=== PATIENT | male | born 1970 | race Two or more races ===

== ENCOUNTER 2020-03-13 14:30 | Emergency (ER) | payer OTHER ==
--- NOTE | 2020-03-13 14:41 | ER Document Report ---
ED Medical Screen (RME) - General Chief Complaint: Blurred Vision Stated Complaint: VISION ISSUES Time Seen by Provider: 03/13/20 14:33 - HPI Notes: 03/13/20 14:38 50-year-old male with past medical history for hypertension to the emergency department with complaints of acute onset of peripheral vision loss that began 1 hour ago and now headache and memory difficulty. He states that the vision has come back to him some but at one point he could not see his hand until it got almost directly in front of him. He states that he is having difficulty remembering his 's number and his boss's number. He states he is able to look those things up but he still cannot tell as his physician's name and he cannot tell as his blood pressure information. When I am talking to him he is stumbling over his words and looking like he is trying to find the answer to my questions but really struggling with that. He has no other focal deficits. He is ambulating in the department, has no leg drift normal [id number], no pronator drift, no cranial nerve palsy. I have alerted charge nurse Lauren about the situation and patient will be taken down to CT immediately. I performed a brief medical screening exam on the patient determined that the patient needs further evaluation and management by main side provider. I have placed initial orders to help expedite care.
--- NOTE | 2020-03-13 14:50 | RADIOLOGY REPORT (SQ) ---
EXAM DESCRIPTION: CHEST SINGLE VIEW IMAGES COMPLETED DATE/TIME: 03/13/2020 2:43 pm REASON FOR STUDY: vision loss, memory difficulty COMPARISON: None. EXAM PARAMETERS: NUMBER OF VIEWS: One view. TECHNIQUE: Single frontal radiographic view of the chest acquired. RADIATION DOSE: NA LIMITATIONS: None. FINDINGS: LUNGS AND PLEURA: No opacities, masses or pneumothorax. No pleural effusion. MEDIASTINUM AND HILAR STRUCTURES: No masses. Contour normal. HEART AND VASCULAR STRUCTURES: Heart normal in size. Normal vasculature. BONES: No acute findings. HARDWARE: None in the chest. OTHER: No other significant finding. IMPRESSION: NO ACUTE RADIOGRAPHIC FINDING IN THE CHEST. TECHNICAL DOCUMENTATION: JOB ID: [id number] 2010 [employer]- All Rights Reserved Reading location - IP/workstation name: [email or web address]
--- NOTE | 2020-03-13 14:54 | RADIOLOGY REPORT (SQ) ---
EXAM DESCRIPTION: CT HEAD WITHOUT IMAGES COMPLETED DATE/TIME: 03/13/2020 2:44 pm REASON FOR STUDY: vision changes, memory loss COMPARISON: None. TECHNIQUE: Axial images acquired through the brain without intravenous contrast. Images reviewed wi th bone, brain and subdural windows. Additional sagittal and coronal reconstructions were generated. Images stored on PACS. All CT scanners at this facility use dose modulation, iterative reconstruction, and/or weight based d osing when appropriate to reduce radiation dose to as low as reasonably achievable (ALARA). [facility]: Dose Right [facility]: CareDose [facility]: Dose Right [facility]: Teradose 4D [facility]: [employer] RADIATION DOSE: CT Rad equipment meets quality standard of care and radiation dose reduction techniq ues were employed. CTDIvol: 53.2 mGy. DLP: 1150 mGy-cm. mGy. LIMITATIONS: None. FINDINGS: VENTRICLES: Normal size and contour. CEREBRUM: No masses. No hemorrhage. No midline shift. No evidence for acute infarction. Normal gra y/white matter differentiation. No areas of low density in the white matter. CEREBELLUM: No masses. No hemorrhage. No alteration of density. No evidence for acute infarction. EXTRAAXIAL SPACES: No fluid collections. No masses. ORBITS AND GLOBE: No intra- or extraconal masses. Normal contour of globe without masses. CALVARIUM: No fracture. PARANASAL SINUSES: No fluid or mucosal thickening. SOFT TISSUES: No mass or hematoma. OTHER: No other significant finding. IMPRESSION: NORMAL BRAIN CT WITHOUT CONTRAST. EVIDENCE OF ACUTE STROKE: NO. COMMENT: Pertinent positive or negative findings of the imaging study reported as a CRITICAL EXAM t o ED PROVIDER at14:47 on 03/13/2020. Category of Critical Exam: Stroke alert. Quality ID # [id number]: Final reports with documentation of one or more dose reduction techniques (e.g., Au tomated exposure control, adjustment of the mA and/or kV according to patient size, use of iterative reconstruction technique) TECHNICAL DOCUMENTATION: JOB ID: [id number] [employer]- All Rights Reserved Reading location - IP/workstation name: [email or web address]
[2020-03-13 15:29] VITALS: BP 156/95
[2020-03-13] MEDS ORDERED: ACETAMINOPHEN 325 MG TABLET PO ONE (15:32)
[2020-03-13] MEDS ORDERED: ACETAMINOPHEN 325 MG TABLET ONE (15:33)
[2020-03-13 15:36] LABS: INTERNATIONAL RATION (INR) 0.93; PROTHROMBIN TIME 12.7 SEC (11.4-15.4)
[2020-03-13 15:37] LABS: ABSOLUTE BASOPHILS # (AUTO) 0.1 10^3/uL (0.0-0.2); ABSOLUTE EOSINOPHILS # (AUTO) 0.1 10^3/uL (0.0-0.6); ABSOLUTE LYMPHOCYTES (AUTO) 1.9 10^3/uL (0.5-4.7); ABSOLUTE MONOCYTES (AUTO) 0.6 10^3/uL (0.1-1.4); ABSOLUTE NEUT (AUTO) 4.2 10^3/uL (1.7-8.2); EOSINOPHILS % (AUTO) 1.3 % (0-6); HEMOGLOBIN 14.3 g/dL (13.5-17.0); LYMPHOCYTES % (AUTO) 28.2 % (13-45); MEAN CORPUSCULAR HEMOGLOBIN 29.4 pg (27.0-33.4); MEAN CORPUSCULAR VOLUME 86 fl (80-97); MONOCYTES % (AUTO) 8.2 % (3-13); PARTIAL THROMBOPLASTIN TIME 31.3 SEC (23.5-35.8); PLATELET COUNT 263 10^3/uL (150-450); RED BLOOD COUNT 4.86 10^6/uL (4.35-5.55); RED CELL DISTRIBUTION WIDTH 14.2 % (11.5-14.0); SEGMENTED NEUTROPHILS % (AUTO) 61.3 % (42-78); TOTAL CELLS COUNTED % (AUTO) 100 %; WHITE BLOOD COUNT 6.8 10^3/uL (4.0-10.5)
[2020-03-13] MEDS ORDERED: ASPIRIN 325 MG TABLET PO ONE (15:45)
[2020-03-13] MEDS ORDERED: DIPHENHYDRAMINE HCL 50 MG/ML VIAL IV ONE (15:46)
[2020-03-13] MEDS ORDERED: METOCLOPRAMIDE HCL INJ/PF 10 MG/2 ML SDV IV ONE (15:46)
[2020-03-13] MEDS ORDERED: FENTANYL CITRATE INJ/PF 100 MCG/2 ML AMPUL IV ONE (15:46)
[2020-03-13 15:55] LABS: ALKALINE PHOSPHATASE 76 U/L (38-126); ANION GAP 10 (5-19); ASPARTATE AMINO TRANSFERASE 36 U/L (17-59); BILIRUBIN,DIRECT 0.3 mg/dL (0.0-0.4); BILIRUBIN,TOTAL 0.6 mg/dL (0.2-1.3); BLOOD UREA NITROGEN 18 mg/dL (7-20); CALCIUM 10.6 mg/dL (8.4-10.2); CARBON DIOXIDE 28 mmol/L (22-30); CHLORIDE 100 mmol/L (98-107); GLUCOSE 92 mg/dL (75-110); POTASSIUM 4.5 mmol/L (3.6-5.0); TOTAL PROTEIN 7.7 g/dL (6.3-8.2)
--- NOTE | 2020-03-13 16:14 | ER Document Report ---
Entered by SUZY VELIZ SCRIBE 03/13/20 1548 Acting as scribe for:PRASHANT QUAN, DO ED General - General Chief Complaint: Loss of Vision Stated Complaint: VISION ISSUES Time Seen by Provider: 03/13/20 14:33 Primary Care Provider: JANNA GALVIN PA-C [Primary Care Provider] - Follow up as needed Information source: Patient, Relative Notes: This 50 year old male patient presents to the emergency department today with a headache and vision changes. Patient states he was at work x1 hour ago sitting in front of his computer when he experienced changes to his right peripheral vision with blurriness. Patient states he could not remember his 's or boss's number but was able to look them up. Patient's states when he called his speech was not slurred but told him to visit the ED. Patient states he developed a headache while driving to the ED, which is behind his eyes, at his temples, and is sharp. Patient states his memory and vision have improved in the ED. Patient reports history of HTN, seasonal allergies, and is on medications. Denies any recent fever, travel, or being sick other than a ear and sinus infection x1 month ago. - Related Data Allergies/Adverse Reactions: No Known Allergies Allergy (Unverified 03/13/20 15:32) Home Medications: Lisinopril. HcTz. Flonase. allergy pill Past Medical History - General Information source: Patient, Relative - Social History Smoking Status: Never Smoker Cigarette use (# per day): No Chew tobacco use (# tins/day): No Frequency of alcohol use: None Drug Abuse: None Lives with: Family Family History: Arthritis, Malignancy Patient has homicidal ideation: No - Medical History Notes: Seasonal allergies - on medications - Past Medical History Cardiac Medical History: Reports: Hx Hypertension Review of Systems - Review of Systems Constitutional: See HPI. denies: Fever EENT: See HPI, Blurred vision - R Cardiovascular: No symptoms reported Respiratory: No symptoms reported Gastrointestinal: No symptoms reported Genitourinary: No symptoms reported Male Genitourinary: No symptoms reported Musculoskeletal: No symptoms reported Skin: No symptoms reported Hematologic/Lymphatic: No symptoms reported Neurological/Psychological: See HPI, Headaches, Other - memory difficulty. denies: Speech impairment -: Yes All other systems reviewed and negative Physical Exam - Vital signs Vitals: Pulse Resp BP Pulse Ox 72 12 156/95 H 97 03/13/20 14:45 03/13/20 14:45 03/13/20 14:45 03/13/20 14:45 - General General appearance: Appears well, Alert - HEENT Head: Normocephalic, Atraumatic Eyes: Normal Extraocular movements intact: Yes Pupils: PERRL Ears: Normal External canal: Normal Tympanic membrane: Normal - Respiratory Respiratory status: No respiratory distress Chest status: Nontender Breath sounds: Normal Chest palpation: Normal - Cardiovascular Rhythm: Regular Heart sounds: Normal auscultation Murmur: No - Abdominal Inspection: Normal Distension: No distension Bowel sounds: Normal Tenderness: Nontender - Extremities General upper extremity: Normal inspection, Normal ROM General lower extremity: Normal inspection, Normal ROM. No: Edema - Neurological Neuro grossly intact: Yes Cognition: Normal Orientation: AAOx4 Mer[place] Coma Scale Eye Opening: Spontaneous [place] Coma Scale Verbal: Oriented [place] Coma Scale Motor: Obeys Commands Merry Coma Scale Total: 15 Speech: Normal Cranial nerves: Normal Motor strength normal: LUE, RUE, LLE, RLE Sensory: Normal - Psychological Associated symptoms: Normal affect, Normal mood - Skin Skin Temperature: Warm Skin Moisture: Dry Skin Color: Normal Course - Re-evaluation Re-evalutation: 03/13/20 17:13 MDM 50 year old male who is right handed with h/o htn developed a brief loss of vision of right eye and then a headache following this. NIHSS was 0 here upon arrival and no need for TPA given complete resolution of symptoms. I have reccomended pt stay for obs for carotid studies and echo along with MRI. His pcp locally is [facility]. I have discussed these reccomendations with the pt and his and they have expressed understanding. After discussion with his pt will follow up locally. He understands to return here for weakness, speech difficulty, or any other problems or concerns. - Vital Signs Vital signs: Temp Pulse Resp BP Pulse Ox 72 12 156/95 H 97 03/13/20 14:45 03/13/20 14:45 03/13/20 14:45 03/13/20 14:45 - Laboratory Result Diagrams: 03/13/20 14:55 03/13/20 14:55 Laboratory results interpreted by me: 03/13/20 03/13/20 14:55 14:55 RDW 14.2 H Calcium 10.6 H - Diagnostic Test Radiology reviewed: Image reviewed, Reports reviewed - EKG Interpretation by Me EKG shows normal: Sinus rhythm Rate: Normal Rhythm: NSR - NSR NL [place] [address] elevation or depression my interp retation. Discharge - Discharge Clinical Impression: Visual loss Headache Qualifiers: Headache type: unspecified Headache chronicity pattern: acute headache Intractability: not intractable Qualified Code(s): R51.9 - Headache, unspecified Condition: Stable Disposition: HOME, SELF-CARE Instructions: Family Physicians / Practices, Headache ([facility]), Transient Ischemic Attack ([facility]) Additional Instructions: See your doctor or a referral doctor in followup to schedule an ultrasound of the arteries in the neck and heart. Also an MRI of the brain could add valuable information. Take 325 mg of aspirin daily. Please return here for weakness, difficulty with speech or other problems or other concerns. Forms: Return to Work Referrals: JANNA GALVIN, MALLY [Primary Care Provider] - Follow up as needed I personally performed the services described in the documentation, reviewed and edited the documentation which was dictated to the scribe in my presence, and it accurately records my words and actions.
--- NOTE | 2020-03-13 18:06 | EKG REPORT ---
SEVERITY:- OTHERWISE NORMAL ECG - SINUS RHYTHM BORDERLINE LEFT AXIS DEVIATION ST ELEV, PROBABLE NORMAL EARLY REPOL PATTERN : Confirmed by: Matteo Amor MD 13-Mar-2020 18:05:27
== END 2020-03-13 17:35 | disposition home or self-care (01) ==
LOC: ER 14:30
DX: H54.61 Unqualified visual loss, right eye, normal vision left eye (principal); R51.9 Headache, unspecified; H53.8 Other visual disturbances; R41.3 Other amnesia; J30.2 Other seasonal allergic rhinitis; I10 Essential (primary) hypertension; Z79.899 Other long term (current) drug therapy
CPT/HCPCS: 93005; 99285; 96374; 96375; 36415; 82962; 83735; 84443; 85025; 85610; 85730; 80053; 84484; 71045; 70450; 93010; J1200; J3010; J2765